=== PATIENT | male | born 1970 | race Caucasian/White ===

== ENCOUNTER 2021-03-03 20:27 | Emergency (ER) | payer BC, SELFPAY ==
[2021-03-03 20:40] VITALS: BP 134/83; PULSE 99; RESP 15; TEMP 36.7; O2SAT 97; BMI 33.0
--- NOTE | 2021-03-03 21:04 | W.ED.GENADLT ---
HPI - General Adult General: Chief complaint: General Medical Stated complaint: poss insect bite/fever Time Seen by Provider: 03/03/21 20:57 History of Present Illness: HPI narrative: Patient complains of body aches fever chills after sustaining bite to right lower extremity while he is [place] [facility] [employer] [place]. Did have a couple ticks colon but he did not remember having a tick that bit into him. Said he had some sweats and was feeling weak was able to drive home from [place] day then got feeling bad again. MD complaint: Fever Onset (ago): day(s) Location: lower extremity Associated symptoms: Reports fevers/chills, malaise and other (Muscle aches, denies Covid symptoms); Deny chest pain, dyspnea, headache(s), nausea, rash or vomiting Review of Systems Const: Reports: malaise Eyes: Denies: change in vision or blurry vision ENMT: Denies: throat pain or nasal congestion Card: Denies: chest pain or dyspnea on exertion Resp: Denies: dyspnea, productive cough or non-productive cough GI: Denies: abdominal pain, nausea or vomiting : Denies: difficulty urinating Musc: Denies: extremity pain Skin/Breast: Reports: skin tenderness (Right posterior calf up near the knee); Denies: rash Neuro: Denies: headache(s) Psych: Denies: anxiety or depression Dale/Lymph: Denies: easy bruising Physical Exam Const: COMMON NORMALS: no acute distress, average body habitus and patient oriented x3 HENMT: COMMON NORMALS: normocephalic HEAD & SCALP: normal to inspection and normocephalic FACE & SINUS: normal facial exam Eye: COMMON NORMALS: conjunctivae normal GENERAL EYE: appearance normal, both eyes and all related structures CONJUNCTIVA: Yes conjunctivae normal Neck/C-Spine: COMMON NORMALS: no JVD Chest: COMMONS NORMALS: normal inspection of the chest Resp: COMMON NORMALS: normal respiratory effort and clear to auscultation bilaterally AUSCULTATION: clear to auscultation bilaterally Cardio: COMMON NORMALS: no JVD, regular rate and regular rhythm RATE: regular rate RHYTHM: regular rhythm GI: COMMON NORMALS: Normal to inspection, nondistended, normoactive bowel sounds present Extremity: COMMON NORMALS: normal to inspection and full ROM Neuro: COMMON NORMALS: patient oriented x3 Skin: NARRATIVE SKIN EXAM: Nickel size area of erythema below knee right posterior calf tender Course Vital Signs: Vital signs: Vital Signs Temperature 98.1 F 03/03/21 20:40 Pulse Rate 99 03/03/21 20:40 Respiratory Rate 15 03/03/21 20:40 Blood Pressure 134/83 03/03/21 20:40 Pulse Oximetry 97 03/03/21 20:40 MDM - General Adult MDM Narrative: Medical decision making narrative: Patient presents with flulike symptoms and possible tick bite. Patient has suppressed white count and elevated liver enzymes consistent with tickborne disease patient placed on doxycycline given 1 dose here and will follow up primary care provider Lab Data: Labs: Lab Results 03/03/21 03/03/21 03/03/21 Range/Units 21:13 21:13 21:13 WBC 2.1 L (4.0-10.0) 10^3/ uL RBC 5.35 H (4.1-5.3) 10^6/u L Hgb 15.2 (11.7-16.6) g/dL Hct 45.2 (42.0-52.0) % MCV 84.5 (80-94) fL MCH 28.4 (28.0-34.0) pg MCHC 33.6 (30.0-36.0) g/dL RDW 13.1 (12.1-15.1) % Plt Count 104 L (130-400) 10^3/c mm MPV 9.3 (7.4-10.4) fL Neut % (Auto) 51.4 % Lymph % (Auto) 31.3 % [place] % (Auto) 12.1 % Eos % (Auto) 3.3 % Baso % (Auto) 1.4 % Neut # (Auto) 1.10 L (1.8-7.7) 10^3/u L Lymph # (Auto) 0.7 L (0.8-4.8) 10^3/u L [place] # (Auto) 0.3 (0.2-0.9) 10^3/u L Eos # (Auto) 0.1 (0.0-0.8) 10^3/u L Baso # (Auto) 0.0 (0.0-0.1) 10^3/u L Nucleated RBC % (a uto) 0 % Nucleated RBCs # 0.0 /100WBC Sodium 137 (136-145) mmol/L Potassium 3.6 (3.5-5.1) mmol/L Chloride 103 (98-107) mmol/L Carbon Dioxide 24 (22-29) mmol/L Anion Gap 13.6 (5-19) BUN 11 (6-20) mg/dL Creatinine 0.9 (0.7-1.2) mg/dL GFR Calculation 88.6 L (90-130) mL/min Glucose 98 (65-115) mg/dL Calculated Osmolal ity 283 L (285-295) mOsm/k g Calcium 8.5 (8.5-10.5) mg/dL Total Bilirubin 0.7 (0.15-1.2) mg/dL AST 86 H (0-40) U/L ALT 105 H (0-41) U/L Alkaline Phosphata se 81 (40-130) IU/L Total Protein 6.5 L (6.6-8.7) g/dL Albumin 4.1 (3.5-5.2) g/dL Globulin 2.4 (1.3-4.6) g/dL Influenza Type A A g Negative (Negative) Influenza Type B A g Negative (Negative) Discharge Plan Discharge Patient Disposition: Home Clinical Impression: Tick fever Condition: Stable Prescriptions: New doxycycline hyclate 100 mg capsule 100 mg PO BID 7 Days Qty: 14 RF: 0 Discharge Orders: Discharge ED (Routine); Ordered 03/03/21 Ordered By: Lester Sidhu Referrals: Bell Arndt DO [Primary Care Provider] - Discharge Diet: Usual diet Discharge Activity: Increase activity as tolerated Patient Instructions: Tick Bite (ED) Activity Restrictions/Additional Instructions: Follow-up with medical provider as directed. Take medications as prescribed. Return to the ER or your medical provider if condition worsens. Please read and understand discharge instructions. If any questions ask please. Contact the lab in 48 to 72 hours tofollow-up on tick panel results. If you do not get feeling better follow-up with your family medical provider return here. Drink plenty of fluids. Coding Level of Care Code ED Dry Goods Clerk for Chg Fwd Exam Comprehensive
[2021-03-03] MEDS: cefTRIAXone 1,000 MG in lidocaine 1% 2.1 ML 1 MG IM (21:23)
[2021-03-03 21:25] LABS: Eosinophils # 0.1 10^3/uL (0.0-0.8); Lymphocytes % 31.3 %; Nucleated Red Blood Cells % 0 %
[2021-03-03 21:30] LABS: Basophils % 1.4 %; Eosinophils % 3.3 %; Hematocrit 45.2 % (42.0-52.0); Hemoglobin 15.2 g/dL (11.7-16.6); Lymphocytes # 0.7 10^3/uL (0.8-4.8); Mean Corpuscular HGB Conc 33.6 g/dL (30.0-36.0); Mean Corpuscular Hemoglobin 28.4 pg (28.0-34.0); Mean Corpuscular Volume 84.5 fL (80-94); Mean Platelet Volume 9.3 fL (7.4-10.4); Monocytes # 0.3 10^3/uL (0.2-0.9); Monocytes % 12.1 %; Neutrophils % 51.4 %; Platelet Count 104 10^3/cmm (130-400); Red Blood Count 5.35 10^6/uL (4.1-5.3); Red Cell Distribution Width 13.1 % (12.1-15.1); White Blood Count 2.1 10^3/uL (4.0-10.0)
[2021-03-03 21:42] LABS: Alanine Aminotransferase 105 U/L (0-41); Albumin Level 4.1 g/dL (3.5-5.2); Alkaline Phosphatase 81 IU/L (40-130); Anion Gap 13.6 (5-19); Aspartate Amino Transferase 86 U/L (0-40); Blood Urea Nitrogen 11 mg/dL (6-20); Calcium 8.5 mg/dL (8.5-10.5); Carbon Dioxide 24 mmol/L (22-29); Chloride 103 mmol/L (98-107); Creatinine Clr Calc Pharmacy 126.7026; Globulin 2.4 g/dL (1.3-4.6); Glomerular Filtration Rate 88.6 mL/min (90-130); Glucose 98 mg/dL (65-115); Osmolality Calculated 283 mOsm/kg (285-295); Potassium 3.6 mmol/L (3.5-5.1); Sodium 137 mmol/L (136-145); Total Bilirubin 0.7 mg/dL (0.15-1.2); Total Protein 6.5 g/dL (6.6-8.7)
[2021-03-03 21:44] LABS: Influenza A by IFA Negative (Negative); Influenza B by IFA Negative (Negative)
[2021-03-03 21:52] LABS: Slide Review Slide Review Perform
[2021-03-03] MEDS: doxycycline 100 mg Tablet PO (22:03)
[2021-03-05 13:41] LABS: Lyme AB Screen <0.90 index
[2021-03-07 17:27] LABS: E. Chaffeensis AB IGG <1:64; E. Chaffeensis AB IGM <1:20
[2021-03-08 17:12] LABS: RMSF IGG NOT DETECTED; RMSF IGM NOT DETECTED
== END 2021-03-03 22:06 | disposition home or self-care (01) ==
PROVIDERS: Emergency Provider Nurse Practitioner Family; PCP Family Medicine
DX: A93.8 Other specified arthropod-borne viral fevers (principal)
CPT/HCPCS: 80053; 85025; 86618; 86666; 86757; 87804; 96372; 99283; J0696

== ENCOUNTER → 2022-01-11 11:41 | Outpatient (BNVA) | payer BC, SELFPAY | PROVIDERS: PCP Family Medicine; Visit Provider Nurse Practitioner Family | DX: N39.0 Urinary tract infection, site not specified (principal); R39.9 Unspecified symptoms and signs involving the genitourinary system | CPT/HCPCS: 81000 ==